=== PATIENT | female | born 1945 | race Two or more races ===

== ENCOUNTER 2016-08-20 20:34 | Emergency (ER) | payer MEDICARE ==
[~2016-08-20] VITALS: Ht 152.4 cm; Wt 54.4 kg
--- NOTE | 2016-08-20 21:02 | NUR ---
Patient to ER bed 3 to gown for evaluation. Side rails up. Assumed care of pt.
[2016-08-20 21:04] VITALS: BP 162/76; PULSE 129; RESP 22; TEMP 97.6; O2SAT 100
--- NOTE | 2016-08-20 21:04 | NUR ---
Pt. presented to ED with c/o n/v x8 times prior to arrival to ED. Pt. also has c/o BEST unrelieved by medications taken at home. Daughter stated that she is unable to hold any food, med, or water down.
--- NOTE | 2016-08-20 21:28 | NUR ---
ER at bedside examining patient.
[2016-08-20] MEDS ORDERED: NACL 0.9% 1,000 ML IV ONE (21:33)
[2016-08-20] MEDS ORDERED: chlorproMAZINE HCL 50 MG/ 2 ML AMP IV ONE ×2 (21:45→22:45)
[2016-08-20] MEDS ORDERED: DIPHENHYDRAMINE INJ 50 MG/ML VIAL IVP ONE (21:45)
[2016-08-20 21:50] LABS: BASOPHILS # (AUTO) 0.1 K/uL (0.0-0.2); BASOPHILS % (AUTO) 0.9 % (0.0-2.0); EOSINOPHILS % (AUTO) 0.4 % (0.0-4.0); HEMATOCRIT 42.9 % (36-48); HEMOGLOBIN 14.7 g/dL (12.0-16.0); LYMPHOCYTES # (AUTO) 1.3 K/uL (1.0-5.5); LYMPHOCYTES % (AUTO) 14.3 % (20.5-51.5); MEAN CORPUSCULAR HEMOGLOBIN 30 pg (27-31); MEAN CORPUSCULAR HGB CONC 34 % (32-36); MEAN CORPUSCULAR VOLUME 88 fL (79.0-98.0); MONOCYTES # (AUTO) 0.4 K/uL (0.0-1.0); MONOCYTES % (AUTO) 5.1 % (1.7-9.3); NEUTROPHILS # (AUTO) 6.9 K/uL (1.8-7.7); NEUTROPHILS % (AUTO) 79.3 % (40.0-70.0); PLATELET COUNT (AUTO) 248 K/uL (130-430); RED BLOOD CELL COUNT(AUTO) 4.86 MIL/uL (4.2-6.2); RED CELL DISTRIBUTION WIDTH 12.4 % (9.0-15.0); WHITE BLOOD COUNT (AUTO) 8.8 K/uL (4.8-10.8)
[2016-08-20] MEDS ORDERED: FAMO40TA7 PO (21:53)
[2016-08-20] MEDS ORDERED: ASA81 PO (21:53)
[2016-08-20] MEDS ORDERED: LOSA25TA3 PO (21:53)
[2016-08-20] MEDS ORDERED: LORA10TA7 PO (21:53)
[2016-08-20] MEDS ORDERED: HYDR12.55 ×2 (21:53)
[2016-08-20] MEDS ORDERED: SIMV20TA6 PO (21:53)
[2016-08-20] MEDS ORDERED: HYDR25TA4 PO (21:53)
[2016-08-20 22:04] LABS: ANION GAP 11 (5-15); CALCIUM 9.5 mg/dL (8.4-11.0); CHLORIDE 94 mmol/L (98-107); CREATININE 0.71 mg/dL (0.55-1.30); GLUCOSE 128 mg/dL (70-99); POTASSIUM 3.2 mmol/L (3.5-5.1); SODIUM SERUM 129 mmol/L (136-145); UREA NITROGEN, BLOOD 10 mg/dL (8-21)
--- NOTE | 2016-08-20 22:05 | NUR ---
Pt. to CT
[2016-08-20 22:09] LABS: ALANINE AMINOTRANSFERASE 22 U/L (12-78); ALBUMIN 3.5 g/dL (3.4-4.8); ASPARTATE AMINOTRANSFERASE 25 U/L (10-37); TOTAL BILIRUBIN 0.7 mg/dL (0.0-1.0); TOTAL PROTEIN, SERUM 7.6 g/dL (6.4-8.3)
--- NOTE | 2016-08-20 22:10 | NUR ---
Pt. back from CT
[2016-08-20] MEDS ORDERED: MORPHINE 2 MG/ML INJ. SYRINGE IVP ONE (22:45)
[2016-08-20] MEDS ORDERED: POTASSIUM CHLORIDE 20 MEQ TAB.PRT.SR PO ONE (23:15)
[2016-08-21] MEDS ORDERED: ONDANSETRON 4 MG ODT TAB PO ONE
--- NOTE | 2016-08-21 00:35 | NUR ---
PO challenge done, will continue to monitor pt.
--- NOTE | 2016-08-21 00:58 | NUR ---
Patient given written and verbal discharge instructions and verbalizes understanding. ER MD discussed with patient the results and treatment provided. ID arm band removed. IV catheter removed intact and dressing applied, no active bleeding. Rx of zofran given. Patient educated on pain management and to follow up with PMD. Pain Scale 0/10. Pt. able to hold down fluids given during PO challenge Opportunity for questions provided and answered.
[2016-08-21 01:01] VITALS: BP 122/84; PULSE 91; RESP 16; TEMP 97.6; O2SAT 100
== END 2016-08-21 01:01 | disposition home or self-care (01) ==
LOC: SED 20:34
DX: R51 Headache (principal); R11.2 Nausea with vomiting, unspecified; I10 Essential (primary) hypertension; J45.909 Unspecified asthma, uncomplicated; E78.00 Pure hypercholesterolemia, unspecified; Z79.82 Long term (current) use of aspirin
CPT/HCPCS: 36415; 70450; 80053; 85025; 85610; 85730; 96361; 96374; 96375; 96376; 99285; J1200; J2270; J3230; J7030; Q0162

== ENCOUNTER 2018-08-25 16:23 | Emergency (ER) | payer BC, MEDICARE ==
[~2018-08-25] VITALS: Ht 152.4 cm; Wt 55.3 kg
[~2018-08-25 16:23] MED LIST: ASA81 PO; FAMO40TA7 PO; HYDR12.55; HYDR25TA4 PO; LORA10TA7 PO; LOSA25TA3 PO; SIMV20TA6 PO
[2018-08-25 16:25] VITALS: BP_SYST 150
[2018-08-25] MEDS ORDERED: ALBUTEROL SULFATE 0.083% 2.5 MG/3 ML VIAL.NEB INH ONE (17:30)
[2018-08-25] MEDS ORDERED: ACETAMINOPHEN 500 MG TABLET PO ONE (17:30)
[2018-08-25] MEDS ORDERED: LEVOFLOXACIN 500 MG/D5W 100 ML IV ONE (17:30)
[2018-08-25 18:12] LABS: HEMATOCRIT 38.3 % (36-48); MEAN CORPUSCULAR VOLUME 90 fL (79.0-98.0); RED BLOOD CELL COUNT(AUTO) 4.24 MIL/uL (4.2-6.2); WHITE BLOOD COUNT (AUTO) 5.9 K/uL (4.8-10.8)
[2018-08-25 18:13] LABS: BASOPHILS % (AUTO) 1.1 % (0.0-2.0); EOSINOPHILS % (AUTO) 0.2 % (0.0-4.0); LYMPHOCYTES % (AUTO) 11.7 % (20.5-51.5); MEAN CORPUSCULAR HEMOGLOBIN 31 pg (27-31); MEAN CORPUSCULAR HGB CONC 34 % (32-36); MONOCYTES % (AUTO) 13.9 % (1.7-9.3); NEUTROPHILS # (AUTO) 4.3 K/uL (1.8-7.7); NEUTROPHILS % (AUTO) 73.1 % (40.0-70.0); PLATELET COUNT (AUTO) 280 K/uL (130-430); RED CELL DISTRIBUTION WIDTH 13.6 % (9.0-15.0)
[2018-08-25 18:14] LABS: BASOPHILS # (AUTO) 0.1 K/uL (0.0-0.2); LYMPHOCYTES # (AUTO) 0.7 K/uL (1.0-5.5); MONOCYTES # (AUTO) 0.8 K/uL (0.0-1.0)
[2018-08-25 18:30] LABS: PROTHROMBIN TIME 10.3 SECS (9.5-12.5)
[2018-08-25 18:41] LABS: ANION GAP 12 (5-15); CALCIUM 9.1 mg/dL (8.4-11.0); CHLORIDE 91 mmol/L (98-107); CREATININE 0.92 mg/dL (0.55-1.30); GLUCOSE 100 mg/dL (70-99); POTASSIUM 3.3 mmol/L (3.5-5.1); SODIUM SERUM 129 mmol/L (136-145); UREA NITROGEN, BLOOD 12 mg/dL (8-21)
[2018-08-25 18:46] LABS: ALANINE AMINOTRANSFERASE 24 U/L (12-78); ALBUMIN 3.6 g/dL (3.4-4.8); ASPARTATE AMINOTRANSFERASE 23 U/L (10-37); TOTAL BILIRUBIN 0.4 mg/dL (0.0-1.0)
[2018-08-25] MEDS ORDERED: POTASSIUM CHLORIDE 20 MEQ TAB.PRT.SR PO ONE (19:15)
[2018-08-25] MEDS ORDERED: OSELTAMIVIR PHOSPHATE 75 MG CAPSULE PO ONE (19:15)
[2018-08-25 19:42] VITALS: BP_SYST 120
== END 2018-08-25 19:42 | disposition home or self-care (01) ==
LOC: SED 16:23
DX: J10.1 Influenza due to other identified influenza virus with other respiratory manifestations (principal); R50.9 Fever, unspecified; J45.909 Unspecified asthma, uncomplicated; K21.9 Gastro-esophageal reflux disease without esophagitis; I10 Essential (primary) hypertension; E78.5 Hyperlipidemia, unspecified; Z88.0 Allergy status to penicillin; Z79.82 Long term (current) use of aspirin; Z79.899 Other long term (current) drug therapy
CPT/HCPCS: 36415; 71045; 80053; 83605; 83880; 84484; 85025; 85610; 86710; 87040; 93005; 94640; 96365; 99284; G9035; J1956; J7613

== ENCOUNTER 2019-02-25 14:41 | Emergency (ER) | payer BC ==
[~2019-02-25] VITALS: Ht 157.5 cm; Wt 68.0 kg
[2019-02-25 14:41] VITALS: BP_SYST 165
[2019-02-25] MEDS ORDERED: NACL 0.9% 1,000 ML IV ONE (14:56)
[2019-02-25] MEDS ORDERED: MECLIZINE HCL 25 MG TABLET (ANITVERT) PO ONE (15:00)
[2019-02-25] MEDS ORDERED: ONDANSETRON HCL 4 MG/2 ML VIAL IVP ONE (15:00)
[2019-02-25 15:27] LABS: BASOPHILS # (AUTO) 0.1 K/uL (0.0-0.2); BASOPHILS % (AUTO) 1.1 % (0.0-2.0); EOSINOPHILS # (AUTO) 0.2 K/uL (0.0-0.4); EOSINOPHILS % (AUTO) 2.3 % (0.0-4.0); HEMATOCRIT 35.5 % (36-48); HEMOGLOBIN 12.3 g/dL (12.0-16.0); LYMPHOCYTES # (AUTO) 1.5 K/uL (1.0-5.5); LYMPHOCYTES % (AUTO) 21.9 % (20.5-51.5); MEAN CORPUSCULAR HEMOGLOBIN 32 pg (27-31); MEAN CORPUSCULAR HGB CONC 35 % (32-36); MEAN CORPUSCULAR VOLUME 92 fL (79.0-98.0); MONOCYTES # (AUTO) 0.4 K/uL (0.0-1.0); MONOCYTES % (AUTO) 6.6 % (1.7-9.3); NEUTROPHILS # (AUTO) 4.6 K/uL (1.8-7.7); NEUTROPHILS % (AUTO) 68.1 % (40.0-70.0); PLATELET COUNT (AUTO) 287 K/uL (130-430); RED BLOOD CELL COUNT(AUTO) 3.89 MIL/uL (4.2-6.2); RED CELL DISTRIBUTION WIDTH 13.6 % (9.0-15.0); WHITE BLOOD COUNT (AUTO) 6.7 K/uL (4.8-10.8)
[2019-02-25 15:33] LABS: ANION GAP 10 (5-15); CALCIUM 8.8 mg/dL (8.4-11.0); CHLORIDE 96 mmol/L (98-107); CREATININE 1.04 mg/dL (0.55-1.30); GLUCOSE 116 mg/dL (70-99); POTASSIUM 3.3 mmol/L (3.5-5.1); SODIUM SERUM 132 mmol/L (136-145); UREA NITROGEN, BLOOD 15 mg/dL (8-21)
[2019-02-25 15:46] LABS: ALANINE AMINOTRANSFERASE 17 U/L (12-78); ALBUMIN 3.4 g/dL (3.4-4.8); ASPARTATE AMINOTRANSFERASE 23 U/L (10-37); TOTAL BILIRUBIN 0.5 mg/dL (0.0-1.0)
[2019-02-25 16:42] VITALS: BP_SYST 130
== END 2019-02-25 16:42 | disposition home or self-care (01) ==
LOC: SED 14:41
DX: R42 Dizziness and giddiness (principal); J45.909 Unspecified asthma, uncomplicated; K21.9 Gastro-esophageal reflux disease without esophagitis; I10 Essential (primary) hypertension; E78.5 Hyperlipidemia, unspecified; Z88.0 Allergy status to penicillin; Z79.82 Long term (current) use of aspirin; Z79.899 Other long term (current) drug therapy
CPT/HCPCS: 36415; 80053; 84484; 85025; 93005; 96361; 96374; 99284; J2405; J7030; J8597